=== PATIENT | female | born 1985 | race Caucasian/White ===

== ENCOUNTER 2016-10-22 07:08 | Inpatient (IN) | payer MEDICAID ==
[2016-10-22] MEDS ORDERED: cefOXitin IV 2 gm in Dextrose 2 GM/50 ML BAG IVPB ONE (07:35)
[2016-10-22 07:44] VITALS: BMI 38.2
[2016-10-22] MEDS: Lactated Ringer's 1,000 ML IV SCH ×2 (07:45→22:08)
[2016-10-22] MEDS ORDERED: Gentamicin 80 mg in 0.9% NS 100 ML IVPB ONE (07:54)
[2016-10-22] MEDS ORDERED: Sodium Citrate/Citric Acid 15 ml Sol PO ONE (08:00)
[2016-10-22] MEDS ORDERED: CLINDAMYCIN IVPB SCH (08:00)
[2016-10-22] MEDS ORDERED: SODIUM CHLORIDE 0.9% IVPB SCH (08:00)
[2016-10-22] MEDS ORDERED: Oxycodone/Acetaminophen 5/325 mg Tab PO PRN ×2 (08:00)
[2016-10-22 08:17] LABS: BASO % 0.3 % (0.0-2.0); EOS # 0.1 K/uL (0.0-0.7); EOS % 0.6 % (0.0-4.0); HEMATOCRIT 30.2 % (34.0-47.0); LYMPH # 1.3 K/uL (1.0-4.3); LYMPH % 13.9 % (20.0-40.0); MEAN CELL VOLUME 85.9 fL (81.0-99.0); MEAN CORPUSCULAR HEMOGLOBIN 28.9 pg (27.0-31.0); MEAN CORPUSCULAR HGB CONC 33.6 g/dL (33.0-37.0); MONO # 0.5 K/uL (0.0-0.8); MONO % 5.3 % (0.0-10.0); RED CELL DISTRIBUTION WIDTH 14.6 % (11.5-14.5); WHITE BLOOD COUNT 9.3 K/uL (4.8-10.8)
[2016-10-22 08:21] LABS: CHLORIDE 104 mmol/L (98-107); SODIUM 135 mmol/L (132-148)
--- NOTE | 2016-10-22 08:21 | OBADHP ---
Datetime: 10/22/2016 08:16 Pelvic Type - PN: Adequate Extremities - PN: Normal Abdomen - PN: Normal Back - PN: Normal Breast - PN: Not Done Lungs - PN: Normal Heart - PN: Normal Thyroid - PN: Not Done Neurologic - PN: Not Done HEENT - PN: Not Done General - PN: Normal Weight - Estimated: 3400 Presentation-Admit: Vertex FHR - Baseline A Provider: 130 Membranes, Provider: Intact Gestation - Est Wks by US: 39.0 IP Hx Assessment: The History has been Reviewed and is Current Vital Signs Provider: Reviewed; Within Normal Limits IP Chief Complaint: Uterine contractions NICHD Variability Prov Fetus A: Moderate 6-25bpm NICHD Accel Fetus A IP Provider: [id number] FHR Category Provider Fetus A: Category I NICHD Decel Fetus A IP Provider: None Genitourinary Exam: Normal DTRs - PN: Normal EGA AdmitDate IP: 38.6 IP Adm Impression: Term, intrauterine ; No Active Labor IP Admit Plan: Admit to unit; Initiate Section protocol Datetime: 09/17/2016 10:25 IP Chief Complaint Other: S/P fall 09/16/16 Admit Comment, IP Provider: 31 y.o. , LMP unsure, MERON 10/30/16, EGA 33w 6d by sono at approxim ately 7 weeks - S/P fall 09/16/16 2100 hours - slipped on wet floor while stepping out of bathtub. Pat ient states she fell in a "split" and landed on her inner thighs; no direct abdominal trauma. Did not hit her head; no loss of consciousness. Denies LOF, VB. Decreased movement since the fall last night and into this morning - was concerned and came in for assessment. Patient has not contacted he r private OB provider, Dr. Pineda, at any time since the fall. Last Ob visit 09/03/16; has an appointm ent today, at 1800 hours. Denies any issues to date P Ob: C/S x 2: 2009, female, 7lb 9oz; arrest of dilatation at 5 cm. 2011, male, 7lb 9oz, elective repeat; both at [facility]; no compliations. 2011, VTOP x 1, with D_C; no complications. 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 Denies STIs or abnormal Pap PMH: 2010, gallstones PSH: 2010, laparoscopic cholecystectomy; C/S x 2; D_C Allergies: penicillin (by history) - reaction type unknown Meds: PNV - QD Soc Hx: denies tobacco, illicit drug or EtOH use. Lives with FOB/fiance - together x 6 years. Work s in a [employer] Fam Hx: Mother alive 59 - no med issues. Father age 57 - liver disease. (+) fam h/o Breas t cancer P.E.: as above. Obese in NAD. Awake, alert, oriented to time, person and place. Pleasant and coope rative. Accompanied by FOB Assessment: 31 y.o. P2012, prev C/S x 2; S/P fall with no abdomnal trauma - decreased moveme nt. Category 1 tracing. Plan: 1) BPP with limited Ob ultrasound - per Dr. Pineda Addendum: 1235 hours - BPS 8/8; anterior placenta; YUKI 9.78 cm. Assessment: S/P fall, no direct abdomnal trauma. Decreased movement - BPS reassuring. Clinic ally stable. Plan: 1) Discharge home 2) Reviwed S/S PTL 3) Tylenol, PRN for discomfort 4) F/U Dr. Pineda in 1 week - as per Dr. Pineda Comments, ACOG Physical Exam: Skin: warm, dry, intact Back: no CVA tenderness Abdomen: Gravid. Soft; non tender in all quadrants. Well healed Pfannenstiel scar. Fundal height 3 4 cm Extremities: no calf tenderness, bilaterally. No bruises. No edema or cyanosis All other systems reviewed; as per HPI
[2016-10-22 08:22] LABS: POTASSIUM 3.9 mmol/L (3.6-5.2)
[2016-10-22 08:25] LABS: BLOOD UREA NITROGEN 12 mg/dL (7-17); CALCIUM 8.3 mg/dl (8.6-10.4); CARBON DIOXIDE 21 mmol/L (22-30); GFR AFRICAN-AMERICAN > 60; GLUCOSE,RANDOM 75 mg/dL (65-105)
[2016-10-22 08:37] LABS: RBC URINE 1 /hpf (0-3); URINE BACTERIA OCC (<OCC); URINE BILIRUBIN NEGATIVE (NEGATIVE); URINE BLOOD NEGATIVE (NEGATIVE); URINE GLUCOSE (UA) NORMAL (Normal); URINE KETONE NEGATIVE (NEGATIVE); URINE LEUKOCYTE ESTERASE NEG Leu/uL (Negative); URINE PROTEIN 1+ mg/dL (NEGATIVE); URINE UROBILINOGEN NORMAL mg/dL (0.2-1.0); WBC URINE 3 /hpf (0-5)
[2016-10-22 08:48] LABS: URINE COLOR YELLOW (YELLOW)
[2016-10-22] MEDS ORDERED: Sodium Citrate/Citric Acid 15 ml Sol ONE (09:56)
[2016-10-22] MEDS ORDERED: Oxytocin 10 Units/ml Inj ONE (10:01)
[2016-10-22] MEDS ORDERED: Phenylephrine 10 mg/ml Inj ONE (11:14)
[2016-10-22] MEDS ORDERED: ePHEDrine 50 mg/ml Inj ONE (11:14)
[2016-10-22] MEDS ORDERED: Morphine 1 mg/ml preservative-free Inj(Duramorph) ONE (11:14)
--- NOTE | 2016-10-22 12:50 | OBDS ---
DELIVERY PERSONNEL Delivery Doctor: Norberto Pineda MD Scrub Nurse: Sylvie Menezes OBT Physical Ther: Diab, Jen RN Anesthesiologist: Cecilio Roman MATERNAL INFORMATION Delivery Anesthesia: Spinal Placenta Cultured: No Maternal Complications: None Provider Comments: REPEAT LTC/S WITH DELIVERY OF A VIABLE GIRL, 'S 9/9 LABOR SUMMARY EDC: 10/30/2016 00:00 LABOR INFORMATION Group B Beta Strep: Positive STAGES OF LABOR Stage 3 hrs: 0 Stage 3 min: 1 CSECTION DELIVERY Secondary Indication: Repeat Elective CSection Urgency: Elective CSection Incidence: Repeat Labor: No Labor Elective: Elective CSection Incision: Lower Uterine Transverse BABY A INFORMATION Infant Delivery Date/Time: 10/22/2016 11:49 Method of Delivery: Born in Route : No : N/A Forceps: N/A Vacuum Extraction: N/A Shoulder Dystocia : No SHOULDER DYSTOCIA BABY A Delivery Date/Time: 10/22/2016 11:49 PRESENTATION/POSITION BABY A Presentation: Cephalic Cephalic Presentation: Vertex Vertex Position: Left Occipital Anterior Breech Presentation: N/A PLACENTA INFORMATION BABY A Placenta Delivery Time : 10/22/2016 11:50 Placenta Method of Delivery: Manual Removal Placenta Status: Delivered SCORES BABY A Heart Rate 1 min: >100 bpm Resp Effort 1 min: Good Cry Reflex Irritability 1 min: Cough or Sneeze or Pulls Away Muscle Tone 1 min: Active Motion Color 1 min: Body [place], Extremities Blue Resuscitation Effort 1 min: Tactile Stimulation SCORE 1 MIN: 9 Heart Rate 5 min: >100 bpm Resp Effort 5 min: Good Cry Reflex Irritability 5 min: Cough or Sneeze or Pulls Away Muscle Tone 5 min: Active Motion Color 5 min: Body [place], Extremities Blue Resuscitation Effort 5 min: N/A SCORE 5 MIN: 9 INFANT INFORMATION BABY A Gestational Age at Delivery: 38.6 Gestational Status: Term Infant Outcome : Liveborn Condition : Stable Infant Sex: Female IDENTIFICATION/MEDS BABY A ID Band Number: [id number] ID Band Location: Left Leg; Left Arm Sensor Applied: Yes Sensor Number: [id number] Sensor Location : Cord Clamp Vitamin K Given : Not Given Erythromycin Given: Not Given WEIGHT/LENGTH BABY A Birthweight (gms): 3595 Weight (lb): 7 Weight (oz): 15 Infant Length Inches: 19.00 Length cms: 48.3 CORD INFORMATION BABY A No. Cord Vessels: 3 Nuchal Cord : Around Neck x1, Loose Infant Suction: Mouth; Nose
[2016-10-22] MEDS ORDERED: DiphenhydrAMINE 50 mg/ml Inj IVP PRN (13:03)
--- NOTE | 2016-10-22 17:26 | OP ---
PROCEDURE DATE: 10/22/2016 PREOPERATIVE DIAGNOSES: A 39 weeks gestation, 2 previous sections for elective repeat section. POSTOPERATIVE DIAGNOSES: A 39 weeks gestation, 2 previous sections for elective repeat section. PROCEDURE: Repeat low transverse section. SURGEON: Dr. Max Pineda SUPERINTENDENT PIPELINES: Dr. Smith, who was required for retraction and assistance in delivery and was present throughout the entire procedure. ANESTHESIA: Spinal given by Dr. Roman. FINDINGS: A viable girl delivered at 11:49. scores were 9 at 1 minute and 9 at 5 minutes. The weight was 3595 grams. The ovaries, fallopian tubes, and uterus were all normal. DESCRIPTION OF PROCEDURE: Under adequate spinal anesthesia, the abdomen was prepped and draped in the usual sterile fashion. Going through a previous Pfannenstiel scar, the skin was incised and carried through the subcutaneous tissues to the fascia. The fascia was divided transversely and dissected off the underlying rectus muscle. The rectus muscle was in the midline. The parietal peritoneum was entered sharply and the abdomen was entered. The bladder was retracted using the [place] retractor. The vesicouterine peritoneal fold was incised and dissected off the underlying lower uterine segment. The lower segment was incised transversely in a curvilinear fashion. The fetus was delivered cephalic. The cord was doubly clamped, transected, and baby handed over to the software configuration analyst in attendance. The placenta was manually removed. The uterus was then delivered into the incision. The uterine cavity was cleaned of all debris with laparotomy sponges. The uterine incision was then grasped with T-clamps for hemostasis. The uterine incision was then approximated in 2 layers with 0 Vicryl suture. Again, hemostasis was noted. The uterus was then returned into the abdominal cavity. The abdomen was copiously irrigated with saline. Again, hemostasis was noted. The parietal peritoneum was then approximated with 0 chromic catgut. The rectus muscle was approximated in the midline with 0 chromic catgut. The fascia was approximated in a continuous fashion using 0 Vicryl suture. The subcutaneous tissues were then approximated with 2-0 plain catgut. Hemostasis was achieved. The skin was closed using 4-0 Monocryl subcuticular suture. The estimated blood loss was about 600 mL. Fluids received was 1500 mL.crystalloids Urine output was about 200 ml clear. The sponge, instrument and needle counts were correct x 3. The patient was transferred from the operating room to the recovery room in good condition. Max Pineda MD cc: [id number] TT: 10/22/2016 17:26:01 en MTDSheila
--- NOTE | 2016-10-23 03:53 | OBPPN ---
Datetime: 10/23/2016 03:46 PP Pain Prov: Within normal limits PP Pain Prov comment: cOMPLAINS OF INCISIONAL PAIN, NO BOWEL MOVEMENT PP Nausea Prov: Denies PP Flatus Prov: Yes PP BM Prov: No PP Breasts Prov: Normal PP Heart Prov: Normal PP Lungs Prov: Normal PP Abdomen/Uterus Prov: Normal PP Lochia Prov: Normal PP Vulva/Perineum Prov: Normal PP CVA Tenderness Prov: Normal PP Extremities Prov: Normal PP C/S Incision Prov: Normal PP Progress Prov: Normal PP Comments Phys Exam Prov: ABDOMEN SOFT, APPROPRIATE INCISIONAL TENDERNESS. GOOD BOWEL SOUNDS . INC ISION C/D/I. PP Impression Prov: Normal progression PP Plan Prov: Continue present management IP PP Procedures: None Vital Signs Provider PP: Reviewed; Within Normal Limits
[2016-10-23 08:51] LABS: BASO % 0.2 % (0.0-2.0); HEMATOCRIT 30.7 % (34.0-47.0); LYMPH % 7.9 % (20.0-40.0); MEAN CELL VOLUME 87.2 fL (81.0-99.0); MEAN CORPUSCULAR HEMOGLOBIN 28.1 pg (27.0-31.0); MEAN CORPUSCULAR HGB CONC 32.2 g/dL (33.0-37.0); MEAN PLATELET VOLUME 7.2 fL (7.2-11.7); MONO # 0.4 K/uL (0.0-0.8); MONO % 2.8 % (0.0-10.0); PLATELET COUNT 330 K/uL (130-400); RED CELL DISTRIBUTION WIDTH 14.9 % (11.5-14.5)
[2016-10-23 09:00] LABS: CHLORIDE 102 mmol/L (98-107)
[2016-10-23 09:01] LABS: POTASSIUM 4.4 mmol/L (3.6-5.2); SODIUM 133 mmol/L (132-148)
[2016-10-23 09:02] LABS: ALB/GLOB RATIO 0.9 (1.0-2.1); ALKALINE PHOSPHATASE 122 U/L (38-126); AST/SGOT 34 U/L (14-36); BILIRUBIN,TOTAL 0.5 mg/dL (0.2-1.3); BLOOD UREA NITROGEN 15 mg/dL (7-17); CARBON DIOXIDE 23 mmol/L (22-30); GFR AFRICAN-AMERICAN > 60; TOTAL PROTEIN 5.9 g/dL (6.3-8.3)
[2016-10-23 09:03] LABS: ALT/SGPT 21 U/L (9-52); GLUCOSE,RANDOM 118 mg/dL (65-105)
[2016-10-23 09:40] LABS: NEUTROPHIL 88 % (50-75); TOTAL CELLS COUNTED 100
[2016-10-23 09:41] LABS: LARGE PLATELETS PRESENT
[2016-10-23] MEDS: Prenatal Multivit/Folic Acid/Iron Tab PO SCH (10:48)
[2016-10-24 08:14] LABS: BASO % 0.3 % (0.0-2.0); EOS # 0.1 K/uL (0.0-0.7); EOS % 0.6 % (0.0-4.0); HEMATOCRIT 30.8 % (34.0-47.0); LYMPH # 1.5 K/uL (1.0-4.3); LYMPH % 11.6 % (20.0-40.0); MEAN CELL VOLUME 87.3 fL (81.0-99.0); MEAN CORPUSCULAR HEMOGLOBIN 28.5 pg (27.0-31.0); MEAN CORPUSCULAR HGB CONC 32.6 g/dL (33.0-37.0); MEAN PLATELET VOLUME 7.1 fL (7.2-11.7); MONO # 0.5 K/uL (0.0-0.8); MONO % 3.8 % (0.0-10.0); RED CELL DISTRIBUTION WIDTH 15.5 % (11.5-14.5); WHITE BLOOD COUNT 13.2 K/uL (4.8-10.8)
--- NOTE | 2016-10-24 09:39 | OBPPN ---
Datetime: 10/24/2016 09:28 PP Pain Prov: Within normal limits PP Nausea Prov: Denies PP Flatus Prov: Yes PP BM Prov: No PP Breasts Prov: Normal PP Heart Prov: Normal PP Lungs Prov: Normal PP Abdomen/Uterus Prov: Normal PP Lochia Prov: Normal PP Vulva/Perineum Prov: Normal PP CVA Tenderness Prov: Normal PP Extremities Prov: Normal PP C/S Incision Prov: Normal PP Progress Prov: Normal PP Comments Phys Exam Prov: Abdomen soft, appropriate incisional tenderness. Good bowel sounds. Inci chencho C/D/I. PP Impression Prov: Normal progression PP Plan Prov: Continue present management PP Progress Note Prov: Stable. Anticipate discharge tomorrow IP PP Procedures: None Vital Signs Provider PP: Reviewed; Within Normal Limits
[2016-10-24] MEDS: Prenatal Multivit/Folic Acid/Iron Tab PO SCH (10:33)
[2016-10-24] MEDS: Simethicone 80 mg Chewtab PO SCH ×4 (10:33→21:53)
[2016-10-25] MEDS: Prenatal Multivit/Folic Acid/Iron Tab PO SCH ×2 (09:00→09:02)
[2016-10-25] MEDS: Simethicone 80 mg Chewtab PO SCH (09:02)
[2016-10-25 09:12] VITALS: BP 110/63; PULSE 66; RESP 18; TEMP 97.3; O2SAT 99
--- NOTE | 2016-10-26 12:05 | OBDCSUM ---
Datetime: 10/25/2016 09:56 Discharge Instructions, Provider: Specific instructions as noted Discharge Diagnosis, Provider: Term Delivered Contraception discussed, Prov: Yes Discharge Diagnosis Prov Other: REPEAT LTC/S Contraception after Delivery: Undecided
== END 2016-10-25 11:30 | disposition home or self-care (01) | DRG 371 ==
LOC: C.4D 07:18 → C.4M 17:00
PROVIDERS: ADMIT Obstetrics & Gynecology; ATTEND Obstetrics & Gynecology
PROC: 10D00Z1 Extraction of Products of Conception, Low, Open Approach (ICD-10-PCS; principal; 2016-10-22)
DX: O34.211 Maternal care for low transverse scar from previous cesarean delivery (principal); O99.824 Streptococcus B carrier state complicating childbirth; O69.81X0 Labor and delivery complicated by cord around neck, without compression, not applicable or unspecified; Z3A.39 39 weeks gestation of pregnancy; Z37.0 Single live birth